=== PATIENT | female | born 1980 | race African-American/Black ===

== ENCOUNTER 2020-05-03 09:40 | Emergency (ER) | payer SELFPAY ==
[~2020-05-03] VITALS: Ht 182.9 cm; Wt 81.6 kg
[2020-05-03] MEDS ORDERED: ALBUTEROL FS 2.5 MG/3 ML VIAL.NEB NEB ONE (10:00)
[2020-05-03] MEDS ORDERED: IPRATROPIUM NEB FS 0.5 MG/2.5 ML AMPUL.NEB NEB ONE (10:00)
--- NOTE | 2020-05-03 10:00 | NUR ---
PT BIB SELF C/O SOB. UPON ARRIVAL PT O2 SAT IS 98%. PT STATES THAT SHES BEEN FEELING CONGESTED AND HAVING SOME SOB FOR A COUPLE OF DAYS. ALSO STATES THAT SHE HAS HX OF BRONCHITIS. VS CHECKED. AWAITING MD CONTRERAS.
--- NOTE | 2020-05-03 10:10 | NUR ---
URINE COLLECTED. SENT TO LAB
[2020-05-03] MEDS ORDERED: ALBUTEROL FS 2.5 MG/3 ML VIAL.NEB ONE (10:16)
[2020-05-03] MEDS ORDERED: IPRATROPIUM NEB FS 0.5 MG/2.5 ML AMPUL.NEB ONE (10:16)
[2020-05-03 11:13] VITALS: BP 124/82
--- NOTE | 2020-05-03 11:17 | NUR ---
Patient discharged to home in stable condition. Written and verbal after care instructions given. Patient verbalizes understanding of instruction.
== END 2020-05-03 11:17 | disposition home or self-care (01) ==
LOC: ER 09:44
DX: J20.9 Acute bronchitis, unspecified (principal); Z86.19 Personal history of other infectious and parasitic diseases; R06.03 Acute respiratory distress; J42 Unspecified chronic bronchitis
CPT/HCPCS: 71045; 84703; 87426; 94640; 99284; C9803

== ENCOUNTER 2020-05-03 14:14 | Emergency (ER) | payer SELFPAY ==
[~2020-05-03] VITALS: Ht 182.9 cm; Wt 81.6 kg
--- NOTE | 2020-05-03 14:26 | NUR ---
c/o sob 99% on room air, was here 2 hrs ago for same reason. PT AAOX4, VSS. RR EVEN & UNLABORED. DENIES CP, DIZZINESS, N/V AT THIS TIME. AWAITING EVAL BY ERMD & WILL CONT TO MONITOR.
[2020-05-03] MEDS ORDERED: ALBUTEROL FS 2.5 MG/3 ML VIAL.NEB NEB ONE (15:00)
[2020-05-03] MEDS ORDERED: IPRATROPIUM NEB FS 0.5 MG/2.5 ML AMPUL.NEB NEB ONE (15:00)
--- NOTE | 2020-05-03 15:08 | NUR ---
PT GETTING BREATHING TX PER ERMD ORDER, PT CELESTINE WELL.
[2020-05-03] MEDS ORDERED: IPRATROPIUM NEB FS 0.5 MG/2.5 ML AMPUL.NEB ONE (15:09)
[2020-05-03] MEDS ORDERED: ALBUTEROL FS 2.5 MG/3 ML VIAL.NEB ONE (15:09)
--- NOTE | 2020-05-03 16:30 | NUR ---
Patient discharged to home in stable condition. Written and verbal after care instructions given. Patient verbalizes understanding of instruction.
[2020-05-03 16:31] VITALS: BP 134/65
== END 2020-05-03 16:31 | disposition home or self-care (01) ==
LOC: ER 14:15
DX: B34.9 Viral infection, unspecified (principal); R06.2 Wheezing